=== PATIENT | male | born 1970 | race Caucasian/White ===

== ENCOUNTER 2018-07-22 08:12 | Outpatient (CLI) | payer BC, SELFPAY ==
[2018-07-22 11:53] LABS: Cholesterol 239 mg/dL (50-200); HDL Cholesterol 50 mg/dL (40-60); LDL CHOLESTEROL 151 mg/dL (<100); Triglyceride 170 mg/dL (30-150)
[2018-07-22 12:04] LABS: Hemoglobin A1C 6.3 % (4.5-6.2)
== END 2018-07-22 08:32 ==
PROVIDERS: PCP Emergency Medicine; Visit Provider Emergency Medicine
DX: E11.9 Type 2 diabetes mellitus without complications (principal); E78.5 Hyperlipidemia, unspecified
CPT/HCPCS: 36415; 80061; 83721; 83036

== ENCOUNTER 2018-08-27 07:58 | Outpatient (CLI) | payer BC, SELFPAY ==
[2018-08-27 09:15] LABS: HCT 43.4 % (40.0-50.0); HGB 15.1 g/dL (13.5-17.5); Mean Corp. HGB Concentration 34.8 g/dL (32.0-36.0); Mean Corpuscular Hemoglobin 26.7 pg (27.0-33.0); Mean Corpuscular Volume 76.8 fL (80-95); Mean Platelet Volume 8.9 fL (8.0-11.0); Platelet Count 193 x1000/uL (130-400); RBC 5.65 m/cumm (4.50-6.00); RBC Distribution Width 13.6 % (11.8-14.1); White Blood Cell Count 5.81 k/cumm (4.4-10.8)
[2018-08-27 11:19] LABS: Anion Gap 9.4 mmol/L (3-11); BUN 13 mg/dL (7-18); CO2 26.6 mmol/L (21.0-32.0); CREATININE 1.02 mg/dL (0.70-1.30); Chloride 104 mmol/L (98-107); Glucose 117 mg/dL (70-100); Potassium 4.3 mmol/L (3.5-5.1); Sodium 140 mmol/L (136-145)
== END 2018-08-27 08:18 ==
PROVIDERS: PCP Emergency Medicine; Visit Provider Student in an Organized Health Care Education/Training Program
DX: M25.561 Pain in right knee (principal); M17.31 Unilateral post-traumatic osteoarthritis, right knee; Z01.818 Encounter for other preprocedural examination
CPT/HCPCS: 36415; 80048; 85027

== ENCOUNTER 2018-08-27 10:12 | Outpatient (CLI) | payer BC, SELFPAY ==
--- NOTE | 2018-08-27 10:34 | DI.RAD_ITS ---
SYMPTOMS/DIAGNOSIS: RT KNEE DJD BONE LENGTH STUDY: Standing AP views were performed from above the iliac crests through the ankles. The hip joints appear symmetric. There is no significant leg length discrepancy. There are degenerative changes of the medial femoral tibial joint of the right knee. The left knee is unremarkable. The ankles are unremarkable. IMPRESSION: Degenerative changes of the medial femoral tibial joint of the right knee.
--- NOTE | 2018-08-28 14:43 | HPE_ITS ---
Date of service: 08/27/18 Assessment and Plan (1) Post-traumatic osteoarthritis of right knee: Current visit: No Status: Acute Plan: Patient had standing alignment x-rays completed which showed worsening degenerative changes in form of decreased joint space and osteophytes along the medial joint compartment of the right knee compared to previous x-ray obtained on 11/03/15. Educated patient on surgery covering surgical technique via use of prothesis models, recovery process, benefits and risks including but not limited to risk of infection, blood clot, damage to soft tissue/blood vessels/nerves in detail. After discussion patient gives verbal understanding of risks and elects to proceed with scheduling surgery. Patient and his had opportunity to have questions answered to his satisfaction. He was provided with a guide to total knee replacements. He will contact office if issues arise. Patient will continue to be scheduled for right TKA with Dr. Tello on 09/02/18. History of Present Illness Narrative: Mr. Hanson is a 48-year-old male who presents to clinic with his , Lyndsay, for preoperative visit for scheduled right TKA with Dr. Tello on 09/02/18. Patient was originally seen in orthopedic clinic on 11/03/15 at which time he had a right knee injury approximately 6-10 years before that visit. Following that visit patient underwent right knee arthroscopy for torn meniscus with Dr. Singh. Although patient states his right knee did not feel seen following surgery he has noticed aggravation of symptoms over the past few years. Patient describes right knee pain as being located predominantly along the medial joint line with more diffuse knee pain when severely aggravated. Pain is aggravated with long rides, prolonged sitting with the knee bent and then when he attempts to move the knee, walking on uneven ground and when walking horizontally across a hill. Although patient denies aggravation of pain when descending stairs, he states his knee will occasionally feel like it will give out when on stairs and uneven ground. Due to patient's right knee pain he is unable to crouch or kneel. Patient has received corticosteroid injections in the past including on 10/26/16, 04/17/17, 09/23/17 and received his most recent injection on 02/26/18. Patient also received a Durolane injection on 09/27/17. Although patient had previously had improved symptoms with injections he feels more recent injections have not provided long-lasting relief. Due to patient's continued pain that affects activities of daily life he was offered and elected to proceed with surgical intervention. Pertinent Surgical Information Patient was previously diagnosed with hyperlipidemia but as per patient he no longer requires medications. Patient recently quit smoking approximately 1 month ago but states when he did smoke he would occasionally experience anterior chest wall discomfort following a cough. States pain would only be elicited with coughing and would resolve within seconds. Since quitting smoking he has noticed improved ZAPATA, describes continued ZAPATA after prolonged activity i.e. two flights of stairs. Denies dyspnea at rest. Denies any left sided anterior chest wall pain, denies radiation of pain down his arm, denies palpations, rapid/slow/irregular heart beats. Patient has history of diverticulitis with perforation in 2013. States he has not had any recent symptoms or GI issues. He does take MiraLax regularly at baseline to help decrease his constipation. Denies past medical history of: stroke, cardiac issues, angina, asthma, COPD, sleep apnea, renal issues, liver issues, hepatitis, current gastrointestinal issues, ulcers, bleeding disorders, seizures, migraines, anxiety, depression, diabetes, thyroid issues. Denies prior complications from surgery or anesthesia. Review of Systems Constitutional Denies fever(s), Denies frequent falls and Denies headache(s) Eyes Denies change in vision ENT Denies dizziness, Denies ear discharge, Denies headache(s), Denies epistaxis, Reports nasal congestion (improved from last week when had minor cold), Denies nasal discharge, Denies sinus pressure and Denies sore throat Cardiovascular Denies chest pain, Denies rapid heart rate, Denies irregular heart rhythm, Denies palpitations, Denies dyspnea, Reports dyspnea on exertion (improving since he quit smoking), Denies orthopnea, Denies paroxysmal nocturnal dyspnea and Denies slow heart rate Comments: Reports previous had slight anterior chest wall pain when he would cough due to smoking; denies any recent symptoms Respiratory Denies cough, Denies excessive phlegm production, Denies dyspnea, Reports dyspnea on exertion (improving since he quit smoking) and Denies wheezing Gastrointestinal Denies abdominal pain, Denies melena, Denies hematochezia, Reports constipation (on MiraLax), Denies diarrhea, Denies nausea and Denies vomiting Genitourinary Denies hematuria, Denies dysuria and Denies urinary urgency Musculoskeletal Reports as per HPI, Denies numbness and Denies tingling Neurologic Denies dizziness, Denies frequent falls, Denies headache(s), Denies numbness and Denies tingling Psychiatric Denies anxiety and Denies depression Endocrine Denies palpitations Allergic/Immunologic Denies wheezing [facility] Medical History HTN (hypertension) Hyperlipidemia (Acute) Elevated blood sugar (Acute) Tobacco use disorder (Acute) Post-traumatic osteoarthritis of right knee (Acute 11/03/15) Diverticulitis with perforation (Acute 09/18/13) Psoriasis (Chronic) History of alcohol abuse Obesity Surgical History Meniscectomy (~2006) Open Carpal Tunnel release Colonoscopy - [facility] Family History Mother Essential hypertension Hyperlipidemia Heart disease Heart valve disease Father Essential hypertension Diabetes Sister Personal history of malignant neoplasm Brother Essential hypertension Diabetes PATERNAL AUNT Personal history of malignant neoplasm Social History Smoking/Tobacco Use Status: Former Tobacco Use Pack-years: 35 Alcohol Intake: current Alcohol Intake frequency: other Alcohol type: beer Drug use: Never Household members: spouse 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 Meds Home Medications Medication Instructions Recorded Confirmed Type nicotine (polacrilex) 2 mg PO Q1H PRN #100 piece of gum 07/17/17 08/27/18 Rx clobetasol-emollient 15 gm TOPICAL DAILY #2 tube 09/10/17 08/27/18 Rx nicotine (polacrilex) 4 mg gum 4 mg BC Q2H #100 each 03/14/18 08/27/18 Rx amlodipine 5 mg PO HS 08/27/18 08/27/18 History lisinopril 20 mg PO HS 08/27/18 08/27/18 History polyethylene glycol 3350 [Miralax] 17 g PO DAILY 08/27/18 08/27/18 History Allergies Allergy/AdvReac Type Severity Reaction Status Date / Time acetaminophen [From Vicodin] AdvReac Intermediate itch and Verified 08/28/18 14:30 rash hydrocodone bitartrate AdvReac Intermediate itch and Verified 08/28/18 14:30 [From Vicodin] rash Exam Const General: cooperative and no acute distress HENMT Head: normal to inspection, normocephalic and atraumatic Ears: external ears normal General nose exam: external nose normal and no nasal discharge Face and sinus: face symmetric Mouth: oral mucosae normal, lip normal, tongue normal and moist mucous membranes Teeth and gingiva: dentition normal Throat: posterior oropharynx normal Eyes General: appearance normal, both eyes and all related structures Pupils: PERRL EOM: EOM intact bilaterally Neck Neck: trachea midline Carotids: normal carotid upstroke Lymphatic: no lymphadenopathy noted Resp Effort & Inspection: normal respiratory effort and able to speak in complete sentences Auscultation: clear to auscultation bilaterally, no rales, no rhonchi and no wheezes Cardio Heart Sounds: S1 normal, S2 normal and no murmurs Pulses: radial pulses present bilaterally GI Palpation: soft, no hepatosplenomegaly and nontender Auscultation: normal bowel sounds Skin General skin exam: no rashes or lesions noted Extrem Other: Right knee examination: Skin is intact without signs of erythema, ecchymosis, calor, lesions or rashes. Slight tenderness palpation along medial joint line. Active range of motion reveals full extension and flexion of 110 degrees with slight discomfort elicited at end range of motion. Knee is stable to valgus and varus stress without eliciting discomfort.
== END 2018-08-27 10:32 ==
PROVIDERS: PCP Emergency Medicine; Visit Provider Physician Assistant
DX: M25.561 Pain in right knee (principal); M17.11 Unilateral primary osteoarthritis, right knee
CPT/HCPCS: NC; 77073

== ENCOUNTER 2018-09-02 05:51 | Inpatient (IN) | payer BC, SELFPAY ==
[2018-08-27 08:04] VITALS: BP 140/79; PULSE 74; RESP 19; TEMP 36.6; O2SAT 94
[2018-09-02] VITALS (10 sets, daily range): BP systolic 97–172; BP diastolic 60–94; PULSE 59–84; RESP 13–22; TEMP 35.6–37.1; O2SAT 95–98
[2018-09-02] MEDS: Celecoxib 200 MG CAP 400 MG PO (06:32)
[2018-09-02] MEDS: Acetaminophen 500 MG TAB 1000 MG PO ×2 (06:32→13:41)
[2018-09-02] MEDS: oxyCODONE-CR 10 MG TABCR PO (06:33)
[2018-09-02] MEDS: Gabapentin 300 MG CAP PO (06:33)
[2018-09-02] MEDS: Lactated Ringers 1,000 ML 80 ML IV ×3 (06:33→12:41)
[2018-09-02] MEDS: Bupivacaine 0.25% Pres-Free 30 ML VIAL ×2 (07:00→09:03)
[2018-09-02] MEDS: Bupivacaine LIPOSOME/PF 133 MG/10 ML VIAL IJ ×2 (07:00→09:03)
[2018-09-02] MEDS: ceFAZolin 2 GM/50 ML BAG IVPB (07:34)
[2018-09-02] MEDS: Ketorolac 30 MG/ML VIAL (09:03)
[2018-09-02] MEDS: Normal Saline 20 ML VIAL (09:03)
[2018-09-02] MEDS: Normal Saline Flush 10 ML SYR IV (12:47)
--- NOTE | 2018-09-02 14:27 | PT.INIE ---
Date of service: 09/02/18 Time of Service: 13:33 PT Notes Inpatient Physical Therapy Evaluation Date: 09/02/2018 Referring Doctor: Kwan Tello MD PT Orders: PT CONSULT: Status post right TKA Precautions: Fall. Standard. Patient Profile/Admitting Diagnosis: Order was received today for conservative management of this 48-year-old male with unilateral posttraumatic osteoarthritis of the right knee, status post right total knee arthroplasty early this morning. PMHX: Medical History HTN (hypertension) Hyperlipidemia (Acute) Elevated blood sugar (Acute) Tobacco use disorder (Acute) Post-traumatic osteoarthritis of right knee (Acute 11/03/15) Diverticulitis with perforation (Acute 09/18/13) Psoriasis (Chronic) History of alcohol abuse Obesity Surgical History Meniscectomy (~2006) Open Car[place] T[place] [facility] [place]Home Situation: Patient lives with Lyndsay in a 2-floor house with 5 steps to enter, rails on both sides. Patient has a flight of stairs to the second floor of the house where his bedroom is, rail on the right side going up. He is currently employed by the [employer] and hopes to go back to work once cleared to do so. Patient was independent with all aspects of ADLs without use of any adaptive equipment nor assistive ambulatory devices. Patient reports that when he goes home from this hospital will be helping out and assisting with whatever he needs for a week or so. Equipment Owned/DME: Patient states that he has a FWW at home that he can use as needed. Subjective: Patient denies any dizziness, headaches, chest discomfort. He states that apart from the pain pain he has from the mid calf to mid thigh, he is generally okay and hopes to go home soon when safe to do so cleared by orthopedic surgeon. He is agreeable to a PT consult and treatment. Objective: General Observation: Patient seen lying in bed with cryocuff on right knee. MAUREEN bandages covering surgical dressing from mid leg through mid thigh on the right side. Left IV in the right UE. Juan catheter on. Mental Status: Alert and oriented x3 Pain: 2-3/10 at rest. 4/10 with weightbearing and with pressing the popliteal area downward in bed with terminal knee extension. ROM: Right Upper Extremity: WFL Left Upper Extremity: WFL Right Lower Extremity: In supine, patient was able to bend at the knee up to 115 degrees actively with minimal discomfort, movement limited by MAUREEN wrap. In standing, with the right hip in neutral position, patient was able to bend actively at the knee for a 110 degrees again with MAUREEN wrap limiting full movement. Patient was able to perform straight leg raises 5 times to 50 degrees. Left Lower Extremity: WFL Strength: Right Upper Extremity: Grossly 5/5 Left Upper Extremity: Grossly 5/5 Right Lower Extremity: Hip flexors 3-/5. Knee extensors 3/5. Knee flexors 3-/5. Ankle plantarflexors 5/5. Ankle dorsiflexors 5/5. Left Lower Extremity: Hip flexors 4+/5. Knee extensors 4+/5. Knee flexors 5/5. Ankle plantar flexors 5/5. Ankle dorsiflexors 5/5. Sensation: Minimally impaired on the right LE as to pain and pressure, intact on the left side.Not completely. He states, I feel numb on the right inner thigh Bed Mobility/Transfers: Rolling independent Supine to sit independent Sit to supine independent Sit to stand independent Stand to sit independent Bed to chair supervision Chair to bed supervision Gait: Patient was able to perform level surface ambulation from room to the therapy gym for about 75 feet x2 using the front wheeled walker with only SBA provided. He was able to negotiate three 4-inch steps twice and two 6-inch steps twice with both hands holding onto bilateral rails. No LOB observed. No dizziness reported. Increase discomfort to 4/10 with weight bearing was reported but subsided with rest. Balance: Static Sitting: Normal Dynamic Sitting: Normal Static Standing: Fair Dynamic Standing: Fair Special Tests: Mobility Limitations Standardized Measure [facility] AM-PAC 6 clicks Basic Mobility Inpatient Short Form: Raw Score:21 CMS Score: 29% deficit Informed Consent/Education: Patient instructed in purpose of PT consult and plan of care. He was also instructed in strategies for preventing knee flexion contracture on the right side. Reinforced the value of repeated level surface ambulation at discharge destination in order to maximize mobilization of right knee. Assessment: Patient is a 48-year-old male referred to physical therapy services with the diagnosis unilateral posttraumatic osteoarthritis of the right knee status post total knee arthroplasty. Patient presents with clinical signs and symptoms consistent with current/admitting diagnoses and postoperative status that have resulted to mobility limitations, gait instability, generalized weakness, and impaired of motor control as demonstrated by the following impairment level findings: 1. Decreased strength to right quadriceps 2. Impaired balance 3. Impaired activity tolerance 4. Limitation of joint range of motion in right knee Impairments are contributing to the following functional limitations: 1. Increased completion time for bed mobility tasks 2. Increased completion time for transfer tasks 3. Inability to safely ambulate without assistive device and discomfort 4. Increase completion time for mobility ADL performance 5. Increased fall risk 6. Inability to negotiate steps alone safely without discomfort Patient is assessed as a Moderate 41698 complexity based on the following: History: Patient is a 48-year-old male with unilateral posttraumatic arthritis on the right side status post total knee arthroplasty with co morbidities and past medical history as listed above Examination: Underlying impairments and functional deficits with resulting AMPAC score of 21 and an equivalent CMS score 29% deficit Presentation: Evolving Decision Makin moderate complexity Goals: Goals x 3 days 1. Bed-Chair independent 2. Chair-Bed independent 3. Gait on level surface ambulation with use of least restrictive device for at least 300 feet without report of pain nor dyspnea 4. Stairs independent while holding onto bilateral rails for at least 10 steps without report of pain nor dyspnea 5. Independent with home exercise program 6. Balance good for static and dynamic standing Plan of Care/Treatment Plan: 1-2x/day, 7 days/week x 1 week. Plan of care has been reviewed with the [facility] providing the service under Physical Therapy direction. Initiate Physical Therapy intervention for strengthening, bed mobility, transfers, gait, stairs, balance training, use of assistive device. DISCHARGE RECOMMENDATIONS: May benefit from short-term outpatient physical therapy services 2 weeks from today per orthopedic surgeon recommendations in order to facilitate return to premorbid independent level and to vocational/recreational activities. TREATMENT CODE/TIME: 69180 25 minutes, 05457 24 minutes beginning at 13:33 PM. Thank you for this referral. Yanelis Ellison, PT, DPT, CLT [facility]
--- NOTE | 2018-09-02 15:38 | W.PM.DS.N ---
Date of service: 09/02/18 Time of Service: 15:38 DS: Diagnosis Discharge Diagnosis (1) Post-traumatic osteoarthritis of right knee: Status: Acute Discharge Plan Disposition Patient Disposition: HOME Condition: Good Discharge Details Reason For Visit: R KNEE DJD Admit Date/Time: 09/02/18 05:51 Admit Provider: Kwan Tello Attending Provider: Kwan Tello Primary Care Provider: Florin Fung Hospital Course Hospital Course: Patient was admitted to the medical/surgical floor following the procedure. It was tolerated well without any notable medical, surgical, or anesthetic complications. Mobilization began postoperatively. The isaac catheter was removed and voiding spontaneously. Vitals were stable. Physical therapy worked with the patient and was cleared for discharge home. No acute medical issues. Home Meds and New Rx's Prescriptions: New celecoxib 200 mg capsule 200 mg PO BID PRN (Reason: pain) Qty: 60 RF: 1 acetaminophen 500 mg tablet 1,000 mg PO Q8H PRN (Reason: pain) Qty: 90 RF: 3 pantoprazole 40 mg tablet,delayed release (DR/EC) 40 mg PO DAILY Qty: 30 RF: 0 gabapentin 300 mg capsule 300 mg PO QHS Qty: 7 RF: 0 oxycodone 5 mg tablet 5 mg PO Q4H Qty: 18 RF: 0 aspirin 81 mg tablet,delayed release (DR/EC) 81 mg PO BID Qty: 60 RF: 0 Continued nicotine (polacrilex) 2 MG gum 2 mg PO Q1H PRN Qty: 100 RF: 1 clobetasol-emollient 15 GM cream 15 gm Topical DAILY Qty: 2 RF: 3 nicotine (polacrilex) [Nicorette] 4 mg gum 4 mg BC Q2H Qty: 100 RF: 3 lisinopril 20 MG tablet 20 mg PO HS RF: 0 amlodipine 5 MG tablet 5 mg PO HS RF: 0 polyethylene glycol 3350 [Miralax] 17 gram/dose Powder 17 g PO DAILY RF: 0 Discharge Instructions Additional Instructions: Dr. Tello?s Total Knee Discharge Instructions Activity: The most important activity is to walk. You should try to take short walks a few times a day. It is important that when resting you work on keeping the knee straight. Avoid putting a pillow behind the knee as this will encourage flexion. Work on range of motion exercises as provided by Physical Therapy. - Start outpatient physical therapy within 2 weeks. - You should wear the SUMA hose on both legs for 4 weeks. Dressing: Keep the surgical dressing in place for at least one week. After the first week it may be removed and replace with light gauze and tape or nothing. It may get wet after 3 days but avoid soaking the dressing. If it gets wet, just lightly pat dry. Medications: - You should take Tylenol and anti-inflammatory (Celebrex) as your primary pain control medications - You have been prescribed a stronger pain medication (Oxycodone) for breakthrough pain, take as needed as prescribed. - You will be taking Aspirin 81mg twice a day for DVT prevention unless instructed otherwise. - If you have constipation you should take Colace or Miralax (both [id number]). It takes most people 3-4 days to have a bowel movement. Follow-up: 2 weeks Stand Alone Forms: Nursing Discharge Form Activity:: Activity as Tolerated Equipment/Supplies:: Walker Diet:: As Tolerated Discharge Orders Discharge Orders: Discharge Order (Routine); Ordered 09/02/18 Ordered By: Kwan Tello DS: Data Vitals/I&O Vitals and I&O: Vital Signs Temperature 35.6 C L 09/02/18 11:00 Pulse 72 09/02/18 11:00 Pulse Rhythm Regular 09/02/18 11:00 Respiratory Rate 18 09/02/18 11:00 Respiratory Effort Non-Labored 09/02/18 11:00 Respiratory Depth Normal 09/02/18 11:00 Respiratory Pattern Normal 09/02/18 11:00 Blood Pressure 113/75 09/02/18 11:00 Pulse Oximetry 97 09/02/18 11:00 Respiratory End-tidal CO2 36 09/02/18 10:45 Oxygen Delivery Method Room Air 09/02/18 11:00 Oxygen Flow Rate 0 09/02/18 11:00 Pain Level 0 09/02/18 14:41 Comment 09/02/18 11:00 Intake & Output 09/01/18 09/02/18 09/02/18 23:59 11:59 23:59 Intake Total 1938.667 / 4200.666 2261.999 / 4200.666 Output Total 300 / 2550 2250 / 2550 Balance 1638.667 / 1650.666 11.999 / 1650.666 Weight 114.1 kg Intake: IV 1148.667 / 1520.666 371.999 / 1520.666 Oral 790 / 2680 1890 / 2680 Output: Urine 100 / 2350 2250 / 2350 Estimated Blood Loss 200 / 200 Other: Urine Color Yellow Yellow Urine Appearance Clear Clear Urine Odor None Comment Void x1 in the toilet. Emesis Description None Voiding Methods Toilet [facility] Medical History HTN (hypertension) Hyperlipidemia (Acute) Elevated blood sugar (Acute) Tobacco use disorder (Acute) Post-traumatic osteoarthritis of right knee (Acute 11/03/15) Diverticulitis with perforation (Acute 09/18/13) Psoriasis (Chronic) History of alcohol abuse Obesity Surgical History Meniscectomy (~2006) Open Carpal Tunnel release Colonoscopy - [facility] Family History Mother Essential hypertension Hyperlipidemia Heart disease Heart valve disease Father Essential hypertension Diabetes Sister Personal history of malignant neoplasm Brother Essential hypertension Diabetes PATERNAL AUNT Personal history of malignant neoplasm Social History Smoking/Tobacco Use Status: Former Tobacco Use Pack-years: 35 Alcohol Intake: current Alcohol Intake frequency: other Alcohol type: beer Drug use: Never Household members: spouse 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
[2018-09-02] MEDS: oxyCODONE 5 MG TAB PO (15:51)
--- NOTE | 2018-09-02 15:54 | ROE_ITS ---
Date of service: 09/02/18 Time of Service: 09:50 Operative Note DATE OF PROCEDURE: 09/02/18 PRE-OP DIAGNOSIS: Right knee osteoarthritis POST-OP DIAGNOSIS: same PROCEDURE: Right Total Knee Replacement SURGEON: Kwan Tello RECRUITING COORDINATOR: Laura House ANESTHESIA: regional and spinal ESTIMATED BLOOD LOSS: 200 PATHOLOGY: none sent TOURNIQUET TIME: 34 COMPLICATIONS: None Patient was transported to: PACU Patient's condition: stable Implants: 1. Depuy Attune Posterior Stabilized Femoral Component, Size 7 2. Depuy Attune Fixed Platform Tibial Component, Size 5 3. Depuy Attune 7 x 6 mm fixed, Stabilized Poly 4. Depuy Attune Patellar Component, Size 35 mm Indications: I have seen Kelvin in clinic for symptoms of RIGHT knee arthritis, confirmed with radiographic findings. Kelvin has exhausted nonoperative methods and was having significant limitations in daily function and desired better function and less pain. I discussed the technical details of a knee replacement. I explained the risks of the procedure to include, but not limited to, bleeding, infection, pain, stiffness, fracture, damage to nerves and vessels, damage to muscles and tendons, loosening, need for repeat procedure, blood clot and cardiopulmonary demise. Despite these risks, Kelvin elected to proceed. Findings: There was significant signs of arthritis throughout the knee. They were seen in all 3 compartments but the medial femur and medial tibia showed significant chondromalacia with irregularity of the cartilage and some exposed bone. Procedure Description: Kelvin was greeted in the preoperative holding area where the correct side was identified and marked. The consent was reviewed with the patient and signed. The history and physical was updated. All questions were answered. Preoperative mediacations were administered: Acetaminophen 1000mg, Celebrex 400mg, Gabapentin 300mg, and Oxycontin 10mg. An adductor canal block was then administered by the anesthesia team in the PACU. Kelvin was taken back to the operating room. A spinal anesthestic was then administered. The patient was placed into the supine position on the operating room table. A nonsterile tourniquet was placed high onto the leg but only used for cementing. Posts were placed for positioning during the procedure. All bony prominences were well padded. Prophylactic antibiotics in the form of cefazolin were administered. 1g of Tranxemic Acid was given intravenously within 30 minutes of incision. The right leg was then prepped with Chloraprep and draped in a standard fashion with impervious stockinette and extremity drape with Iodine impregnated skin protection. A timeout to confirm correct identity, side and site, procedure, allergies, anesthesia, and medical concerns was performed. With the knee in some flexion, a midline incision was made overlying the knee. Full thickness skin flaps were raised once the extensor mechanism was encountered. These were raised medially and laterally. Any bleeding was controlled with electrocautery. Once the extensor mechanism was fully exposed, a medial parapatellar arthrotomy was performed in a flexed position. All bleeding from the arthrotomy and the geniculate arteries was coagulated. A medial subperiosteal peel was performed with electrocautery to the midcoronal plane. The fat pad was removed while keeping the patellar tendon protected. The anterior distal femur synovium was removed for later visualization. The ACL and PCL were resected and the anterior horn of the lateral meniscus was transected. The knee was then flexed with the patella everted. There were significant signs of arthritis in the medial compartment with loss of cartilage over the medial femur and medial tibia with irregularities of this area as well as osteophytes. Mild arthritic changes were seen in the patellofemoral joint as well as the lateral compartment. Using a step drill, and based on preoperative templating, the femoral canal was entered. This was done with a step drill without any difficulty. The intramedullary distal femoral cut guide was inserted, set to a 5 degree valgus cut and 9mm cut thickness. The distal femoral cut guide was then held in position and pinned. With the soft tissues protected, the distal cut was performed. This was passed over a few times to ensure a planar cut. I then turned attention to the tibia. The extramedullary guide was placed onto the leg. The distal aspect was slid medial to adjust for position of center of ankle and stay in line with shaft of the tibia. Approximately 3-5 degrees of posterior slope was kept in the proximal cutting guide. The center of the guide was aligned with the PCL. The stylus was used to assess cut thickness. The medial side, most involved side, was set for a 4mm cut. This was then held in position and pinned into place with 2 additional pins and a cross pin for stability. The medial and lateral collateral ligaments were protected and the cut was performed. With this completed, it was assessed and noted to be of appropriate dimensions. The guide was removed. A spacer block was inserted and the knee was brought into extension. The 6mm spacer block provided full extension, without hyperextension and with stability of both the medial and lateral collateral ligaments was assessed. The pins from the femur and the tibia were then removed. The distal femur was then sized. The anterior stylus was placed onto the lateral ridge of the anterior femur. This indicated a size 7 femur. The external rotation of the guide was adjusted to 3 degrees to match the epicondylar axis, perpendicular to [place]?s line. The 4-in-1 cutting guide was the placed. The posterior medial femur cut was evaluated and appeared of good thickness. The spacer block was inserted underneath the cutting guide and stability was confirmed in 90 degrees of flexion. An jordy wing was used to confirm appropriate position of the anterior cut to avoid notching. This cutting guide was ensured to be flush on the cut surface and then pinned into place with headed pins. While protecting the soft tissues, quad tendon, and collateral ligaments, the anterior and posterior cuts were performed with a saw. The central two pins were removed and the posterior and anterior chamfers were cut next. The notch-cutting guide was placed. This was pinned to lateralize the femoral component as much as possible while keeping it flush on the cut surface. This was then pinned into position. A reciprocating saw was used to make the notch cut. A rasp smoothed the cut surfaces. A trial posterior stabilized femoral component was then inserted, impacted down to the cut surfaces, and the lug holes were drilled. A provisional trial tibial component was placed and the knee was brought through range of motion. There was noted to be excellent extension and flexion. There was no significant instability. The patella was tracking without thumbs. The tibial cut surface was fully exposed. The medial and lateral menisci were removed. The tibia was then sized as a 5. The tibia had been previously marked during trialing to correspond to the center of the tibial component to help with rotation. The trial was aligned to this césar, approximately rotated to the medial 1/3rd of the tibial tubercle. The trial was pinned into place. The tibia was prepared with a reamer and a keel punch. The knee was then brought into extension and the patella was measured as 25 mm. Using the patellar clamp and cut guide, this was resected to a flat surface with at least 13mm of thickness remaining. The size 35 patella fit the best. This was oriented and then clamped into position. The lugs were drilled. The trial components were removed. The final components, except for the polyethylene were opened on the back table. The periosteal and capsular tissues, especially posteriorly, around the knee were then systematically injected with a periarticular cocktail consisting of 50cc 0.25% Marcaine, 30mg Ketorolac, 20cc of Exparal and 50cc of injectable saline. The tourniquet was then inflated to 275mmHg. The knee was thoroughly irrigated with a pulse lavage and dried. On the back table, with the implants opened, the cement was mixed. 2 batches of antibiotic laden cement were prepared with vacuum assistance. After the cement was ready a small amount was placed on to the back side of the tibial component at the keel. A small amount was placed onto the posterior flange of the femur. Cement was manual pressurized and impregnated into the cut surface of the tibia. The tibial component was then inserted into the cut surface and impacted into position. Excess cement was removed and the component was reimpacted. Again, excess cement was removed and our attention was then turned to the femur. The femoral cut surface was once again dried and cement was manually impacted into the cut surface. The femoral component was lined with the lug holes and impacted. Excess cement was removed. It was ensured to be down against the cut surface. The trial polyethylene was then inserted and the leg was brought out into full extension for the duration of the cement curing process, approximately 15min. Cement was lastly manually impacted into the cut surface of the patella and the patellar button was clamped into position and held. During this process attention was turned to the gutters of the knee and for all interfaces for any excess cement. After the cement had finally cured, approximately 15min, the clamp was removed from the patella and the knee was taken through range of motion. A size 6mm polyethylene component provided the best range of motion and stability with less than 2mm gapping with medial and lateral stress and full extension without significant hyperextension. The patella was tracking with a no-thumbs technique. The trial poly was removed and once again the knee was checked for any loose, excess, or errant cement. The poly component was then inserted and impacted into position after cleaning and drying the tibial tray. The capsule was then reapproximated with a No. 1 Vicryl at multiple locations. The capsule was finally closed with a No. 2 Stratafix, barbed suture. The tourniquet was then released and the arthrotomy appeared watertight without significant bleeding. The second dosing of 1g TXA was started. Deep tissues were then reapproximated with 0 Vicryl and 2-0 Vicryl. The skin was closed with a running 3-0 Monocryl in a subcuticular fashion. This was reinforced with skin glue. A Mepilex silver dressing was applied along with a [id number] MAUREEN wrap. A CryoCuff was applied. Kelvin was transferred to the hospital bed without difficulty an suffering no apparent complication. Kelvin has a good prognosis. Physical therapy will start today and without restrictions, weight-bearing as tolerated. Aspirin 81mg BID will be used for DVT prophylaxis.
--- NOTE | 2018-09-03 17:35 | PT.INDS ---
Date of service: 09/02/18 PT Notes Inpatient Physical Therapy Discharge Summary Dates: 09/02/2018 Dates of Service: 09/02/2018 only Date: 09/02/2018 Referring Doctor: Kwan Tello MD PT Orders: PT CONSULT: Status post right TKA Precautions: Fall. Standard. Patient Profile/Admitting Diagnosis: Order was received today for conservative management of this 48-year-old male with unilateral posttraumatic osteoarthritis of the right knee, status post right total knee arthroplasty early this morning. PMHX: Medical History HTN (hypertension) Hyperlipidemia (Acute) Elevated blood sugar (Acute) Tobacco use disorder (Acute) Post-traumatic osteoarthritis of right knee (Acute 11/03/15) Diverticulitis with perforation (Acute 09/18/13) Psoriasis (Chronic) History of alcohol abuse Obesity Surgical History Meniscectomy (~2006) Open Carpal Tunnel release Colonoscopy - [facility] [place] Social History/Home Situation: Patient lives with Lyndsay in a 2-floor house with 5 steps to enter, rails on both sides. Patient has a flight of stairs to the second floor of the house where his bedroom is, rail on the right side going up. He is currently employed by the [employer] and hopes to go back to work once cleared to do so. Patient was independent with all aspects of ADLs without use of any adaptive equipment nor assistive ambulatory devices. Patient reports that when he goes home from this hospital will be helping out and assisting with whatever he needs for a week or so. Equipment Owned/DME: Patient states that he has a FWW at home that he can use as needed. Subjective: Patient was agreeable to a possible same day discharge if normal voiding of urine is achieved per orthopedic surgeon's recommendation. He states that Lyndsay will be able to take care of him at home. Objective: General Observation: Patient seen lying in bed with cryocuff on right knee. MAUREEN bandages covering surgical dressing from mid leg through mid thigh on the right side. Left IV in the right UE. Juan catheter on. Mental Status: Alert and oriented x3 Pain: 2-3/10 at rest. 4/10 with weightbearing and with pressing the popliteal area downward in bed with terminal knee extension. ROM: Right Upper Extremity: WFL Left Upper Extremity: WFL Right Lower Extremity: In supine, patient was able to bend at the knee up to 115 degrees actively with minimal discomfort, movement limited by MAUREEN wrap. In standing, with the right hip in neutral position, patient was able to bend actively at the knee for a 110 degrees again with MAUREEN wrap limiting full movement. Patient was able to perform straight leg raises 5 times to 50 degrees. Left Lower Extremity: WFL Strength: Right Upper Extremity: Grossly 5/5 Left Upper Extremity: Grossly 5/5 Right Lower Extremity: Hip flexors 3-/5. Knee extensors 3/5. Knee flexors 3-/5. Ankle plantarflexors 5/5. Ankle dorsiflexors 5/5. Left Lower Extremity: Hip flexors 4+/5. Knee extensors 4+/5. Knee flexors 5/5. Ankle plantar flexors 5/5. Ankle dorsiflexors 5/5. Sensation: Minimally impaired on the right LE as to pain and pressure, intact on the left side.Not completely. He states, I feel numb on the right inner thigh Bed Mobility/Transfers: Rolling independent Supine to sit independent Sit to supine independent Sit to stand independent Stand to sit independent Bed to chair supervision Chair to bed supervision Gait: Patient was able to perform level surface ambulation from room to the therapy gym for about 75 feet x2 using the front wheeled walker with only SBA provided. He was able to negotiate three 4-inch steps twice and two 6-inch steps twice with both hands holding onto bilateral rails. No LOB observed. No dizziness reported. Increase discomfort to 4/10 with weight bearing was reported but subsided with rest. Balance: Static Sitting: Normal Dynamic Sitting: Normal Static Standing: Fair Dynamic Standing: Fair Special Tests: Mobility Limitations Standardized Measure [facility] AM-PAC 6 clicks Basic Mobility Inpatient Short Form: Raw Score:21 CMS Score: 29% deficit Informed Consent/Education: Patient was instructed in strategies for preventing knee flexion contracture on the right side. Reinforced the value of repeated level surface ambulation at discharge destination in order to maximize mobilization of right knee. Assessment: Patient is a 48-year-old male referred to physical therapy services with the diagnosis unilateral posttraumatic osteoarthritis of the right knee status post total knee arthroplasty. Patient presents with clinical signs and symptoms consistent with current/admitting diagnoses and postoperative status that have resulted to mobility limitations, gait instability, generalized weakness, and impaired of motor control as demonstrated by the following impairment level findings: 1. Decreased strength to right quadriceps 2. Impaired balance 3. Impaired activity tolerance 4. Limitation of joint range of motion in right knee Impairments are contributing to the following functional limitations: 1. Increased completion time for bed mobility tasks 2. Increased completion time for transfer tasks 3. Inability to safely ambulate without assistive device and discomfort 4. Increase completion time for mobility ADL performance 5. Increased fall risk 6. Inability to negotiate steps alone safely without discomfort Goals: N/A. Patient went home same day as date of surgery and date of his physical therapy evaluation. DISCHARGE RECOMMENDATIONS: May benefit from short-term outpatient physical therapy services 2 weeks from today per orthopedic surgeon recommendations in order to facilitate return to premorbid independent level and to vocational/recreational activities. TREATMENT CODE/TIME: N/A Thank you for this referral. Yanelis Ellison, PT, DPT, CLT [facility]
== END 2018-09-02 16:25 | disposition home or self-care (01) | DRG 470 ==
LOC: PDS 05:52 → MS 10:08
PROVIDERS: Admitting Provider Student in an Organized Health Care Education/Training Program; PCP Emergency Medicine; Visit Provider Student in an Organized Health Care Education/Training Program
PROC: 0SRC0J9 Replacement of Right Knee Joint with Synthetic Substitute, Cemented, Open Approach (ICD-10-PCS; CPT 27447; principal; 2018-09-02 07:30)
DX: M17.31 Unilateral post-traumatic osteoarthritis, right knee (principal); Z96.651 Presence of right artificial knee joint; X58.XXXS Exposure to other specified factors, sequela; I10 Essential (primary) hypertension; E78.5 Hyperlipidemia, unspecified
CPT/HCPCS: 27447; 64447; 76942; 97530; NC; J0690; J1100; J1885; J2250; J2405; J3010

== ENCOUNTER 2018-09-19 08:30 | Outpatient (CLI) | payer BC, SELFPAY ==
--- NOTE | 2018-09-19 07:11 | DI.RAD_ITS ---
SYMPTOM/DIAGNOSIS: F/U RT TKA RIGHT KNEE: Lateral view of the knee was obtained and shows total knee joint replacement in position. The components appear well seated. No other bony abnormality is seen. BILATERAL LOWER EXTREMITIES: AP views of the lower extremities were obtained for leg length determination. There are mild degenerative changes of the hip joints bilaterally. There is a total knee joint replacement in position on the right.
== END 2018-09-19 08:50 ==
PROVIDERS: PCP Emergency Medicine; Visit Provider Student in an Organized Health Care Education/Training Program
DX: M17.31 Unilateral post-traumatic osteoarthritis, right knee (principal); Z96.651 Presence of right artificial knee joint; M16.0 Bilateral primary osteoarthritis of hip
CPT/HCPCS: 73560; 77073

== ENCOUNTER 2019-10-22 04:47 | Outpatient (CLI) | payer BC, SELFPAY ==
[2019-10-22 08:08] LABS: Hemoglobin A1C 6.4 % (3.8-5.6)
[2019-10-22 09:12] LABS: Anion Gap 8.6 mmol/L (3-11); BUN 12 mg/dL (7-18); CO2 26.4 mmol/L (21.0-32.0); CREATININE 1.07 mg/dL (0.70-1.30); Calcium 8.7 mg/dL (8.5-10.1); Calculated LDL 144 mg/dL (<100); Chloride 102 mmol/L (98-107); Cholesterol 221 mg/dL (<200); Glucose 124 mg/dL (74-106); HDL Cholesterol 54 mg/dL (40-60); Potassium 4.2 mmol/L (3.5-5.1); Sodium 137 mmol/L (136-145); Triglyceride 115 mg/dL (<150)
[2019-10-23 10:57] LABS: PSA, Screening 0.4 ng/mL (0.0-3.5)
== END 2019-10-22 05:07 ==
PROVIDERS: PCP Emergency Medicine; Visit Provider Emergency Medicine
DX: E78.5 Hyperlipidemia, unspecified (principal); I10 Essential (primary) hypertension; Z12.5 Encounter for screening for malignant neoplasm of prostate; E11.9 Type 2 diabetes mellitus without complications
CPT/HCPCS: 36415; 80048; 80061; 84153; 83036

== ENCOUNTER 2019-12-11 01:51 | Outpatient (CLI) | payer BC, SELFPAY ==
--- NOTE | 2019-12-11 13:00 | NS.NUTBLAN_ITS ---
Kelvin is referred to creative services writer for Medical Nutrition Therapy for obesity, elevated blood sugars, hyperlipidemia and HTN. 5'8 252 lbs BMI 38. Meds include: lisinopril. Labs indicate (10/22/19) A1C: 6.4%. Chol: 221, LDL 144, HDL 54. 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 Diet recall indicates erratic meals, convenience foods and an occasional home cooked meal. He smokes 1-2 packs daily. Couple beers daily reported. Assessment/intervention:Kelvin appears to have metabolic syndrom with elevates blood sugars, elevated lipids, obesity and HTN. We discussed risk factors and importance to stop smoking, lose weight and start exercise for improved health. Kelvin is motivated to make positive changes and we discussed simple meals he can have on the run and ways to include exercise into his daily routine despite being busy. He has a family hx of insulin dep diabetes (brother) and is motivated to make changes to avoid risk of developing diabetes in the future. I provided him with written education materials and will follow up on his progress in coming weeks. No future appt made at this time. Plan. 1. Kelvin will talk to MD griggs: smoking cessation and treatment options, 2. Kelvin will eat 3-4 meals daily and focus on complex carbs, lean protein and non starchy vegetables, 3. He will start to walk/exercise/cardio 10-20 min daily x 5 days per week. Kelvin to make follow up appt. prn.
== END 2019-12-11 02:11 ==
PROVIDERS: PCP Emergency Medicine; Visit Provider Dietitian, Registered
DX: R73.09 Other abnormal glucose (principal); E78.5 Hyperlipidemia, unspecified; I10 Essential (primary) hypertension; E66.9 Obesity, unspecified; Z71.3 Dietary counseling and surveillance
CPT/HCPCS: 97802

== ENCOUNTER 2020-03-08 14:11 | Outpatient (REF) | payer BC, SELFPAY ==
[2020-03-08 13:26] LABS: Hemoglobin A1C 5.9 % (<5.7)
[2020-03-08 13:41] LABS: Calculated LDL 121 mg/dL (<100); Cholesterol 199 mg/dL (<200); HDL Cholesterol 55 mg/dL (40-60); Triglyceride 115 mg/dL (<150)
== END 2020-03-08 14:31 ==
LOC: LBN 14:11
PROVIDERS: PCP Emergency Medicine; Visit Provider Emergency Medicine
DX: E11.9 Type 2 diabetes mellitus without complications (principal)
CPT/HCPCS: 80061; 83036

== ENCOUNTER 2020-03-23 08:24 | Emergency (ER) | payer OTHER, BC, SELFPAY ==
[2020-03-23 08:26] VITALS: BP 121/80; PULSE 78; RESP 15; TEMP 36.7; O2SAT 98
--- NOTE | 2020-03-23 08:30 | DI.RAD_ITS ---
EXAM: XR FINGER LT MIDDLE CLINICAL HISTORY: Crush injury, tip of finger, r/o fracture. TECHNIQUE: 2D digital imaging was performed. COMPARISON: None. FINDINGS: BONES: No acute fracture is present. No bony destructive lesion is seen. JOINTS: No dislocation present. SOFT TISSUE: Distal soft tissue defect. No foreign body. IMPRESSION: Soft tissue injury at the tip of the middle finger.. No evidence of acute fracture, dislocation, or subluxation. DATA REPOSITORY: RADIATION DOSE DELIVERED:
--- NOTE | 2020-03-23 08:39 | W.ED.GENAD ---
Discharge Plan Disposition Patient Disposition: HOME Condition: Stable Discharge Details Clinical Impression: Laceration of left middle finger Primary Care Provider: Florin Fung ED Provider: Marta Boss Home Meds and New Rx's Prescriptions: Continued bupropion HCl 150 mg tablet extended release 24 hr 150 mg PO QAM Qty: 30 RF: 6 fluticasone propionate [Children's Flonase Allergy Rlf] 50 mcg/actuation spray,suspension 2 spray JOSE ELIAS DAILY PRN (Reason: allergy symptoms) Qty: 18.2 RF: 4 pravastatin 20 mg tablet 20 mg PO DAILY Qty: 90 RF: 3 clobetasol-emollient 0.05 % cream 15 gm Topical DAILY Qty: 2 RF: 3 amlodipine 5 mg tablet 5 mg PO HS Qty: 90 RF: 3 lisinopril 20 mg tablet 20 mg PO HS Qty: 90 RF: 3 polyethylene glycol 3350 [Miralax] 17 gram/dose Powder 17 g PO DAILY RF: 0 acetaminophen 500 mg tablet 1,000 mg PO Q8H PRN (Reason: pain) Qty: 90 RF: 3 Discharge Instructions Instructions: Finger Laceration (ED) Additional Instructions: Have sutures removed in 5 to 7 days. Leave wound alone for the next 12 to 24 hours. No soaking. You may wash daily under running soap and water. Allow to air dry at least 2 hours a day. Return to the ED for any signs of infection including red streaks, drainage, increased pain or swelling. Follow up with primary care provider in 3-5 days. Return to ED sooner if any worsening or concerns. Increase oral fluids. Please take Tylenol with food every 4-6 hours as needed for pain and swelling. Not use left hand, keep covered when at work or outside doing activities. Stand Alone Forms: Work Release Referrals: Florin Fung, [Primary Care Provider] - Discharge Data Discharge Date/Time-TO BE ENTERED AT DEPARTURE: 03/23/20 10:05 Medical Decision Making <Marta Boss - Last Filed: 03/23/20 11:30> 50-year-old male presents to the ED with left middle finger crush injury. This occurred approximately 1 hour prior to arrival while at work. He crushed his finger in between 2 metal guardrails. He does have a dressing in place upon arrival. Upon initial exam he has an approximate 1 and half centimeter lunar shaped flap laceration to his distal pad of his middle finger. Bleeding is controlled at this time. He does have full range of motion noted to his digit is able to flex and extend. Sensation intact. Denies any other injuries no wrist pain no other injuries noted to his hand. Did not take any medications prior to arrival. He does have history of diabetes, hypertension, restless leg syndrome, right knee replacement, hyperlipidemia and he is a current everyday smoker At this time imaging ordered to rule out fracture or foreign body. We will give a tetanus booster due to the dirty nature of the injury. CLINICAL HISTORY: Crush injury, tip of finger, r/o fracture. TECHNIQUE: 2D digital imaging was performed. COMPARISON: None. FINDINGS: BONES: No acute fracture is present. No bony destructive lesion is seen. JOINTS: No dislocation present. SOFT TISSUE: Distal soft tissue defect. No foreign body. IMPRESSION: Soft tissue injury at the tip of the middle finger.. No evidence of acute fracture, dislocation, or subluxation. Digital block performed as noted in procedure note above, laceration repaired with 3 simple interrupted sutures. Patient was emphasized well from digital block. Laceration was scrubbed with chlorhexidine surgical scrub. Discussed home care, follow-up and suture removal and strict return instructions regarding possible signs of infection which he verbalized understanding. Instructed not to use hand until sutures removed in a week. A splint was applied to prevent reinjury. Patient verbalized understanding. <Luis Enriquez MD - Last Filed: 04/13/20 14:28> Patient seen, examined, and discussed with NICOLE Boss. I agree with treatment plan as discussed/documented. HPI <Marta Boss - Last Filed: 03/23/20 11:30> General Mode of arrival: ambulatory. Date/Time Provider Initiated Documentation: 03/23/20 08:27. Limitations to Documentation: no limitations. Information obtained by: patient. HPI Narrative: 50-year-old male presents to the ED with left middle finger crush injury. This occurred approximately 1 hour prior to arrival while at work. He crushed his finger in between 2 metal guardrails. He does have a dressing in place upon arrival. Upon initial exam he has an approximate 1 and half centimeter lunar shaped flap laceration to his distal pad of his middle finger. Bleeding is controlled at this time. He does have full range of motion noted to his digit is able to flex and extend. Sensation intact. Denies any other injuries no wrist pain no other injuries noted to his hand. Did not take any medications prior to arrival. He does have history of diabetes, hypertension, restless leg syndrome, right knee replacement, hyperlipidemia and he is a current everyday smoker. Related Data Home Medications Medication Instructions Recorded Confirmed polyethylene glycol 3350 [Miralax] 17 g PO DAILY 08/27/18 03/23/20 acetaminophen 1,000 mg PO Q8H PRN #90 tab 09/02/18 03/23/20 fluticasone propionate 50 2 spray JOSE ELIAS DAILY PRN #18.2 ml 08/20/19 03/23/20 mcg/actuation nasal spray,suspension clobetasol-emollient 0.05 % 15 gm TOPICAL DAILY #2 tube 08/31/19 03/23/20 topical cream amlodipine 5 mg tablet 5 mg PO HS #90 tab 10/12/19 03/23/20 lisinopril 20 mg tablet 20 mg PO HS #90 tab 10/12/19 03/23/20 bupropion HCl 150 mg 24 hr tablet, 150 mg PO QAM #30 tab 10/14/19 03/23/20 extended release pravastatin 20 mg tablet 20 mg PO DAILY #90 tab 11/13/19 03/23/20 Previous Rx's Medication Instructions Recorded acetaminophen 1,000 mg PO Q8H PRN #90 tab 09/02/18 fluticasone propionate 50 2 spray JOSE ELIAS DAILY PRN #18.2 ml 08/20/19 mcg/actuation nasal spray,suspension clobetasol-emollient 0.05 % 15 gm TOPICAL DAILY #2 tube 08/31/19 topical cream amlodipine 5 mg tablet 5 mg PO HS #90 tab 10/12/19 lisinopril 20 mg tablet 20 mg PO HS #90 tab 10/12/19 bupropion HCl 150 mg 24 hr tablet, 150 mg PO QAM #30 tab 10/14/19 extended release pravastatin 20 mg tablet 20 mg PO DAILY #90 tab 11/13/19 Allergies Allergy/AdvReac Type Severity Reaction Status Date / Time hydrocodone bitartrate AdvReac Intermediate itch and Verified 03/08/20 07:06 [From Vicodin] rash oxycodone AdvReac withdrawal Verified 03/08/20 07:06 symptoms General Stated Complaint: Laceration JOHN: 3 Review of Systems <Marta Boss - Last Filed: 03/23/20 11:30> Narrative: Constitutional: Negative for weight loss, alert and oriented, well groomed, normal body habitus, appears comfortable. HEENT: Denies trauma, headaches, blurry vision, nasal discharge, sore throat, trouble swallowing. Chest: Denies chest pain, palpitations, irregular rhythm, hypertension. Respiratory: Denies Shortness of breath, cough, hemoptysis. Skin: Crush injury noted to the distal left middle finger as noted in HPI. PFSH <Marta Boss - Last Filed: 03/23/20 11:30> Medical History Diabetes Diverticulitis with perforation (09/18/13) Elevated blood sugar Essential hypertension History of alcohol abuse Hyperlipidemia Obesity Post-traumatic osteoarthritis of right knee (11/03/15) Psoriasis Restless leg Social anxiety disorder Tobacco use disorder Surgical History Colonoscopy - MAC 02/26/14, (diverticulosis), Dr Sahu recommends repeat at 48 yrs Meniscectomy (~2006) RIGHT arthroscopy Open Carpal Tunnel release left Family History Mother Essential hypertension Hyperlipidemia Heart disease Heart valve disease Father Essential hypertension Diabetes Sister Personal history of malignant neoplasm BREAST Brother Essential hypertension Diabetes PATERNAL AUNT Personal history of malignant neoplasm LUNG Social History Smoking/Tobacco Use Status: Current every day Quit status: considering quitting Smoking risk assessment performed?: Yes Alcohol Intake: current Alcohol Intake frequency: other Alcohol type: beer Drug use: Never Household members: spouse 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 Appears stated age. Normal body habitus. Head: Normocephalic, no trauma. Eyes: Pupils PERRLA, Red reflex noted, EOM's intact. Eyelids symmetrical without lesions, discharge, or swelling. ENT: Bilateral TM's WNL, External ear normal to inspection, no mastoid TTP, swelling, or erythema, Nasal turbinates WNL, no nasal discharge. Normal dentition, Posterior pharynx WNL, no exudate. Chest: RRR, Normal S1, S2, distal pulses intact. Resp: Lungs clear to auscultation bilaterally, no wheezes, rales, or rhonchi. Musculoskeletal: Normal gait, 5/5 strength to all four extremities. Skin: Has a flap laceration noted to the palmar aspect of his left middle finger. Full range of motion to the digit, no active bleeding upon arrival. Capillary refill less than 2 sec. Neurologic: Cranial nerves II-XII intact. Alert and oriented x 3. DTR's intact. Hematologic/Lymphatic: No ecchymosis, no lymphadenopathy. Course <[facility] Filed: 03/23/20 11:30> Vital Signs Vital signs: Vital Signs Temperature 36.7 C 03/23/20 08:26 Pulse 78 03/23/20 08:26 Respiratory Rate 15 03/23/20 08:26 Blood Pressure 121/80 03/23/20 08:26 Pulse Oximetry 98 03/23/20 08:26 Temperature 36.7 C 03/23/20 08:26 Temperature Source Temporal Artery Scan 03/23/20 08:26 Pulse 78 03/23/20 08:26 Respiratory Rate 15 03/23/20 08:26 Respiratory Effort Non-Labored 03/23/20 08:31 Blood Pressure 121/80 03/23/20 08:26 Blood Pressure Position Sitting 03/23/20 08:26 Pulse Oximetry 98 03/23/20 08:26 Oxygen Delivery Method Room Air 03/23/20 08:26 Oxygen Flow Rate 0 03/23/20 08:26 Pain Level 3 03/23/20 08:26 Procedures <Marta [facility] Filed: 03/23/20 11:30> Laceration Laceration 1: Site: hand (middle finger) Side (If applicable): left Size (cm): 1.5 Description: flap Depth: simple, single layer Local Anesthetic: Lidocaine 1% Amount of anesthesia used (mL): 3 Pre-repair: wound explored, irrigated extensively and deep structures intact Skin layer closed with: nylon Size (cm): 4-0 Number of sutures: 3 Technique: simple, interrupted Nerve Block Nerve Block 1: Local Anesthetic: Lidocaine 1% Amount of anesthesia used (mL): 3 Side: left Nerve Blocks: digital (4 sided ring block) Procedure Successful: Yes Patient Tolerated Procedure: well Complications: none
[2020-03-23] MEDS: Acetaminophen 325 MG TAB 650 MG PO (08:50)
--- NOTE | 2020-03-23 12:58 | NUR.NOTE ---
telfa over wound with tube dressing.Nursing Note:
--- NOTE | 2020-03-25 11:13 | PDOC.ERCMPRO ---
- If Service Date Differs Date of service: 03/25/20 Time of Service: 11:13 Care Management Progress Note Kelvin was seen in the ED by Marta Boss NP, on 03/23/20 for a laceration of his left middle finger. He reportedly crushed his fingers between 2 guardrails while at work. Today, CM is contacted by patient for assistance completing a Physician's Statement for [employer] related to the 03/23/20 work injury. The form is forwarded to CM via email. HUMAIRA completes the form, obtains the ED provider's signature and emails it back to Kelvin for submission with [employer]. Kelvin is provided contact information for HUMAIRA and instructed to call if I can be of further assistance.
== END 2020-03-23 10:05 | disposition home or self-care (01) ==
PROVIDERS: Emergency Provider Registered Nurse Emergency; PCP Emergency Medicine
DX: S67.193A Crushing injury of left middle finger, initial encounter (principal); S61.213A Laceration without foreign body of left middle finger without damage to nail, initial encounter; W23.1XXA Caught, crushed, jammed, or pinched between stationary objects, initial encounter; Y99.0 Civilian activity done for income or pay; E11.9 Type 2 diabetes mellitus without complications; I10 Essential (primary) hypertension
CPT/HCPCS: 12001; 90471; 73140

== ENCOUNTER 2020-08-24 11:45 | Outpatient (REF) | payer BC, SELFPAY ==
[2020-08-24 12:38] LABS: Hemoglobin A1C 6.5 % (<5.7)
== END 2020-08-24 11:46 | disposition home or self-care (01) ==
LOC: LBN 11:45
PROVIDERS: PCP Emergency Medicine; Visit Provider Emergency Medicine
DX: E11.9 Type 2 diabetes mellitus without complications (principal)
CPT/HCPCS: 83036

== ENCOUNTER 2021-07-28 04:10 | Outpatient (CLI) | payer BC, SELFPAY ==
[2021-07-28 08:01] LABS: Hemoglobin A1C 6.9 % (<5.7)
[2021-07-28 08:05] LABS: Microalb ug/mg Crea 11.6 ug/mg Cr
[2021-07-28 08:08] LABS: Anion Gap 10.2 mmol/L (3-11); BUN 16 mg/dL (7-18); CO2 24.8 mmol/L (21.0-32.0); Calcium 8.8 mg/dL (8.5-10.1); Calculated LDL 139 mg/dL (<100); Chloride 101 mmol/L (98-107); Cholesterol 216 mg/dL (<200); Glucose 118 mg/dL (74-106); HDL Cholesterol 64 mg/dL (40-60); Potassium 4.2 mmol/L (3.5-5.1); Sodium 136 mmol/L (136-145); Triglyceride 69 mg/dL (<150)
== END 2021-07-28 04:11 | disposition home or self-care (01) ==
LOC: LBO 04:10
PROVIDERS: Emergency Medicine; PCP Family Medicine; Visit Provider Family Medicine
DX: E11.9 Type 2 diabetes mellitus without complications (principal); E78.5 Hyperlipidemia, unspecified; I10 Essential (primary) hypertension
CPT/HCPCS: 36415; 80048; 80061; 82043; 82570; 83036

== ENCOUNTER 2022-01-11 09:56 | Emergency (ER) | payer OTHER, SELFPAY ==
[2022-01-11 10:01] VITALS: BP 167/89; PULSE 94; RESP 22; TEMP 36; O2SAT 96
--- NOTE | 2022-01-11 10:08 | ED.GENADUL_ITS ---
Discharge Plan Disposition Patient Disposition: HOME Condition: Stable Discharge Details Clinical Impression: Burn of second degree of left forearm, initial encounter Primary Care Provider: Isaac Bonilla ED Provider: Marta Boss Home Meds and New Rx's Prescriptions: New tramadol 50 mg tablet 50 mg PO Q8H PRN (Reason: pain) Qty: 7 0RF Rx Instructions: Take with food do not operate heavy machinery or drive on this medication. Continued atorvastatin 40 mg tablet 40 mg PO DAILY Qty: 90 3RF polyethylene glycol 3350 [Miralax] 17 gram/dose powder 17 g PO DAILY Qty: 510 8RF amlodipine 5 mg tablet 5 mg PO HS Qty: 90 3RF lisinopril 20 mg tablet 20 mg PO HS Qty: 90 3RF clobetasol-emollient 0.05 % cream 1 applic Topical DAILY Qty: 60 6RF acetaminophen 500 mg tablet 1,000 mg PO Q8H PRN (Reason: pain) Qty: 90 3RF Discharge Instructions Instructions: Second-Degree Burn (ED), Acute Wound Care (ED) Additional Instructions: Please use the bacitracin 3 times daily to attempt to get the tar off the burn area. Literature suggest you may also use olive. I do suspect a second-degree or partial-thickness burn underlying the tar. Please return sooner for any signs of infection, red streaks, purulent or colored drainage, fever chills or any concerns. Please follow-up with wound clinic within the next 3-5 days. . Please change the dressing daily keep it clean and dry. Please call [phone] to make an appointment at the burn clinic with [facility] which is in [place] Follow up with primary care provider in 3-5 days. Return to ED sooner if any worsening or concerns. Increase oral fluids. Please take Tylenol or Ibuprofen with food every 4-6 hours as needed for pain and swelling. Stand Alone Forms: Work Release Referrals: Isaac Bonilla, FOOD AND BEVERAGE ATTENDANT [Primary Care Provider] - 1 week Medical Decision Making 1013:Bacitracin ordered to attempt to remove tar, check to staff to clean up tar with cold washcloth, ice water, tramadol 50 mg ordered p.o. Will apply lidocaine post tar removal. Approximate burn surface area 4.5%. 1030: IV ordered hydromorphone 1 L normal saline for patient comfort. 1124: Tech staff at bedside for attempt to speak with tire removal to better eval underlying burn. 1139: Patient reevaluation moderate amount of the tarry has been removed however patient is complaining of pain. It does appear the patient does have blisters and a second-degree burn noted to his left volar surface of the forearm. Instructed staff to apply the LMX or lidocaine cream for approximately 15 minutes and then attempt to removal again. Will consult with [facility] burn center for consultation and follow-up care. 1140: [facility] Transfer center contacted for Burn consultation. 1242: Have not received call back from burn center however I will give the patient the contact information and have patient follow-up in the burn clinic later this week. Patient placed on tramadol instructed to apply bacitracin to the burn area and continue to get the tar off the forearm. Discussed and instructed on strict return instructions for signs of infection. 1248: Spoke with Dr. Sharpe with [facility] burn center she recommends mineral oil to get the tire off, Mepilex Ag dressing leave dressing in place x1 week and can be seen next in the burn clinic. She left the phone number for follow-up instructed with patient. Patient given tramadol tablets to go. Medical Records Medical records reviewed: Yes I reviewed the patient's medical records. HPI General Mode of arrival: ambulatory . Date/Time Provider Initiated Documentation: 01/11/22 10:01 . Limitations to Documentation: no limitations . Information obtained by: patient and RN notes reviewed . HPI Narrative: 50-year-old male presents to the ER with a left volar aspect forearm tar burn which occurred approximately an hour prior to arrival. 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 He does appear to have possible burn or any tar however my initial exam is limited. He has distal sensation circulation and movement intact to his left hand. It is noncircumferential. He reports that he is up-to-date on his tetanus vaccination within the last 5 to 10 years. He did not take any medications prior to arrival. He does have a past medical history of diabetes, hypertension, restless legs, hyperlipidemia, diverticulitis and psoriasis. Related Data Home Medications Medication Instructions Recorded Confirmed acetaminophen 500 mg tablet 1,000 mg PO Q8H PRN pain #90 tabs 09/02/18 11/08/21 amlodipine 5 mg tablet 5 mg PO HS #90 tabs 08/23/21 11/08/21 clobetasol-emollient 0.05 % 1 applic topical DAILY #60 grams 08/23/21 11/08/21 topical cream lisinopril 20 mg tablet 20 mg PO HS #90 tabs 08/23/21 11/08/21 polyethylene glycol 3350 17 17 g PO DAILY #510 grams 08/23/21 11/08/21 gram/dose oral powder (Miralax) atorvastatin 40 mg tablet 40 mg PO DAILY #90 tabs 11/08/21 11/08/21 tramadol 50 mg tablet 50 mg PO Q8H PRN pain #7 tabs 01/11/22 Previous Rx's Medication Instructions Recorded acetaminophen 500 mg tablet 1,000 mg PO Q8H PRN pain #90 tabs 09/02/18 amlodipine 5 mg tablet 5 mg PO HS #90 tabs 08/23/21 clobetasol-emollient 0.05 % 1 applic topical DAILY #60 grams 08/23/21 topical cream lisinopril 20 mg tablet 20 mg PO HS #90 tabs 08/23/21 polyethylene glycol 3350 17 17 g PO DAILY #510 grams 08/23/21 gram/dose oral powder (Miralax) atorvastatin 40 mg tablet 40 mg PO DAILY #90 tabs 11/08/21 tramadol 50 mg tablet 50 mg PO Q8H PRN pain #7 tabs 01/11/22 Allergies Allergy/AdvReac Type Severity Reaction Status Date / Time hydrocodone bitartrate AdvReac Intermediate itch and Verified 11/08/21 08:10 [From Vicodin] rash oxycodone AdvReac withdrawal Verified 11/08/21 08:10 symptoms General Stated Complaint: ChemExpose JOHN: 3 Review of Systems All systems reviewed & are unremarkable except as noted in HPI and below PFSH All Active Problems (Updated 01/11/22 @ 12:39 by Marta Boss NP) Burn of second degree of left forearm, initial encounter (Acute) Eczema (Acute) Episodic, diffuse-followed by Dr. Medina-Zita Collins Chronic rhinitis (Acute) COVID (Acute) 2021-uri/fatigue Diabetes (Chronic) Social anxiety disorder (Chronic) Essential hypertension (Chronic) Restless leg (Acute) Hyperlipidemia (Acute) Tobacco use disorder (Acute) 2020 quit , 30 pk yr hx ([id number] chest CT screen offered-patient will consider this) Diverticulitis with perforation (Acute 09/18/13) 1.2013 , hospitalized at [facility] 2. 10/2021 probable episode-treated clinically as an outpatient Psoriasis (Chronic) Medical History (Updated 01/11/22 @ 12:39 by Marta Boss NP) History of alcohol abuse Obesity Post-traumatic osteoarthritis of right knee (11/03/15) Surgical History (Updated 11/08/21 @ 08:22 by Rober Heredia MD) History of arthroscopy of knee History of knee replacement History of rectal surgery Status post carpal tunnel release Status post meniscectomy Family History Mother Essential hypertension Hyperlipidemia Heart disease Heart valve disease Father Essential hypertension Diabetes Sister Personal history of malignant neoplasm BREAST Brother Essential hypertension Diabetes PATERNAL AUNT Personal history of malignant neoplasm LUNG Social History (Updated 11/10/21 @ 13:05 by Nazanin Cox) Smoking/Tobacco Use Status: Former Tobacco Use Quit Date: 11/10/20 Pack-years: 35 Tobacco: How many years used: 30 Quit status: considering quitting Smoking risk assessment performed?: Yes Alcohol Intake: current Alcohol Intake frequency: a few times a month Alcohol type: beer Drug use: Never Counseling given: No Caregiver/Support person: Yes Household members: spouse Communication Needs: None Do you need help understanding health information?: Rarely 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 Pets and animals: Yes Pets and animals: cat(s) and dog(s) Sexually active: Yes Do you think of yourself as: straight/heterosexual Current gender identity: male What is your relationship status?: How often do you talk on the phone with friends or family?: three or more times per week How often do you get together with friends or relatives?: three or more times per week How often do you attend episcopalian or cheondoism services?: 4 or more times per year Do you belong to any clubs or organized social groups?: no Panel score (0-1 are the most socially isolated patients): 3 Isadora/Islam: Christianity Seatbelt use: always Helmet use: Yes Helmet use: always Drive intox or ride w/intox gas truck driver: No Do you feel safe at home: Yes Do you feel safe in your relationship?: Yes Exam Extrem Elbow/forearm/wrist images: 1. Dry tar noted to the volar aspect of his left forearm, Course Vital Signs Vital signs: Vital Signs Temperature 36.0 C L 01/11/22 10:01 Pulse 94 H 01/11/22 10:01 Respiratory Rate 22 01/11/22 10:01 Blood Pressure 167/89 H 01/11/22 10:01 Pulse Oximetry 96 01/11/22 10:01 Temperature 36.0 C L 01/11/22 10:01 Pulse 94 H 01/11/22 10:01 Respiratory Rate 22 01/11/22 10:01 Blood Pressure 167/89 H 01/11/22 10:01 Blood Pressure Position Supine 01/11/22 10:01 Pulse Oximetry 96 01/11/22 10:01 Oxygen Delivery Method Room Air 01/11/22 10:01 Oxygen Flow Rate 0 01/11/22 10:01 Pain Level 9 01/11/22 10:01 Comment 01/11/22 10:01
[2022-01-11] MEDS: traMADol 50 MG TAB PO (10:14)
[2022-01-11] MEDS: Bacitracin 30 GM TUBE TP (10:36)
[2022-01-11] MEDS: Normal Saline 1,000 ML 1000 ML IV (10:47)
[2022-01-11] MEDS: HYDROmorphone 2 MG/ML VIAL 0.5 MG IVP (10:47)
[2022-01-11] MEDS: Ondansetron 4 MG/2 ML VIAL IVP (10:48)
[2022-01-11] MEDS: Lidocaine 4% Cream 5 GM TUBE TP (11:43)
[2022-01-11] MEDS: Aquaphor Ointment 99 GM JAR TP (13:41)
== END 2022-01-11 14:01 | disposition home or self-care (01) ==
PROVIDERS: Emergency Provider Registered Nurse Emergency; PCP Nurse Practitioner Family
DX: T22.212A Burn of second degree of left forearm, initial encounter (principal); T31.0 Burns involving less than 10% of body surface; X19.XXXA Contact with other heat and hot substances, initial encounter; Y93.H3 Activity, building and construction; Y99.0 Civilian activity done for income or pay; Z87.891 Personal history of nicotine dependence
CPT/HCPCS: 96361; 96374; 96375; 96376; 99284; 99283; J2405

== ENCOUNTER 2022-03-23 06:59 | Day surgery (SDC) | payer BC, SELFPAY ==
[2022-03-23 07:27] VITALS: BP 148/97; PULSE 86; RESP 16; TEMP 36.4; O2SAT 97
[2022-03-23] MEDS: Tropicam./Phenyleph. (1/2.5%) 5 ML BTL OD ×2 (07:36→07:41)
--- NOTE | 2022-03-23 07:39 | W.ANESPRE ---
General Info Date of Service Date Performed: 03/23/22 Height: 5 ft 8 in Weight: 116.2 kg Body Mass Index (BMI): 38.9 Surgical Procedure: Operation Date: 03/23/22 07:40 Proposed Procedure Side Surgeon p Cataract Extraction with IOL Implant Right Misha Alfaro MD Meds Allergies and Home Medications Allergies Allergy/AdvReac Type Severity Reaction Status Date / Time hydrocodone bitartrate AdvReac Intermediate itch and Verified 03/23/22 07:26 [From Vicodin] rash oxycodone AdvReac withdrawal Verified 03/23/22 07:26 symptoms Home Medication Medication Instructions Recorded acetaminophen 500 mg tablet 1,000 mg PO Q8H PRN pain #90 tabs 09/02/18 amlodipine 5 mg tablet 5 mg PO HS #90 tabs 08/23/21 clobetasol-emollient 0.05 % 1 applic topical DAILY #60 grams 08/23/21 topical cream lisinopril 20 mg tablet 20 mg PO HS #90 tabs 08/23/21 polyethylene glycol 3350 17 17 g PO DAILY #510 grams 08/23/21 gram/dose oral powder (Miralax) atorvastatin 40 mg tablet 40 mg PO DAILY #90 tabs 11/08/21 Current Visit Medications: Current Medications Generic Name Dose Route Start Last Admin Trade Name Freq PRN Reason Stop Dose Admin Acetaminophen 1,000 mg 03/23/22 06:00 Acetaminophen 500 Mg Tab PO Q4H PRN PRN Miscellaneous Medication 0 ml 03/23/22 06:00 Prednisolone 1%, Moxifloxacin 0.5%, Nepafenac 0.1% 5ml Btl OD [facility] Miscellaneous Medication 0 ml 03/23/22 06:00 03/23/22 07:36 Tropicam./Phenyleph. (1/2.5%) 5 Ml Btl OD 1 drp DIRECTED NIGEL Administration Tetracaine HCl 0 ml 03/23/22 06:00 Tetracaine 0.5% 4 Ml Btl OD [facility] PFSH Active Problems Active Problems: Problem Status Onset Code Posterior subcapsular age-related cataract, right eye H25.041 Obesity Eczema L30.9 Diabetes E11.9 Essential hypertension I10 Hyperlipidemia E78.5 Tobacco use disorder F17.200 Diverticulitis with perforation 09/18/13 K57.80 Psoriasis L40.9 Medical History Medical History COVID 2021-uri/fatigue Post-traumatic osteoarthritis of right knee (11/03/15) Surgical History Surgical History History of arthroscopy of knee History of knee replacement History of rectal surgery Status post carpal tunnel release Status post meniscectomy Tobacco Smoking/Tobacco Use Status: Former Tobacco Use Alcohol Alcohol Intake: current Alcohol intake frequency: a few times a month Alcohol type: beer Substance Use Substance use: Never Vital Signs and Lab Results Vital Signs Most Recent Vital Signs in EMR: Most Recent Vital Signs Temp Pulse Resp BP Pulse Ox 36.4 C L 86 16 148/97 H 97 03/23/22 07:27 03/23/22 07:27 03/23/22 07:27 03/23/22 07:27 03/23/22 07:27 Lab Results Blood Type / Crossmatch: No Data to Display Complete Blood Count: No Data to Display Complete Metabolic Panel: No Data to Display Liver Function Panel: No Data to Display Coagulation Panel: No Data to Display Cardiac Panel: No Data to Display Arterial Blood Gas: No Data to Display Venous Blood Gas: No Data to Display Pancreas Panel: No Data to Display Thyroid Panel: No Data to Display Infectious Disease: No Data to Display Blood Cultures: No Data to Display Toxicology Panel: No Data to Display Anesthesia Assessment and Plan Anesthesia History Personal History: No History of Anesthesia Complications Family History: No Family History of Anesthesia Complications Exercise Tolerance Exercise Tolerance: Metabolic Equivalents>4 Pertinent Negatives Pertinent Negatives: No Symptoms of GERD Cardiac & Pulmonary Exam Cardiac Exam: Normal S1/S2 Heart Sounds Pulmonary Exam: Clear Bilateral Breath Sounds Implantable Cardiac Device Does patient have a Pacemaker or an ICD?: No Airway Exam Known Difficult Airway: No Mallampati Class: 2 Mouth Opening: Normal (> 3cm) Thyromental Distance: Greater than 3 cm Facial Hair: Full Winkler Neck Range of Motion: Full ROM Neck Circumference: Normal Teeth Condition: Normal Dentition ASA Classification ASA Score: ASA 2 Emergency Case?: No NPO Status NPO Status: Full Stomach Anesthesia Plan Resuscitation Status: Full Code Anesthesia Technique: MAC Anesthesia Airway Planned: Natural Airway Monitors Used: Standard Monitors Preoperative Comments:: Pt. drove himself, had a cup of coffee with cream this morning. He will proceed understanding that his will drive him home and no sedation will be given for this procedure.
[2022-03-23 07:42] VITALS: BMI 38.9
[2022-03-23] MEDS: Tetracaine 0.5% 4 ML BTL OD (08:27)
[2022-03-23] MEDS: Balanced Salt Soln.-PLUS 500 ML BAG (08:29)
[2022-03-23] MEDS: Lidocaine 2% Jelly 6 ML SYR (08:30)
[2022-03-23] MEDS: Duovisc Viscoelastic System EACH 1 EACH (08:30)
[2022-03-23] MEDS: Povidone-Iodine Ophth 30 ML BTL (08:31)
--- NOTE | 2022-03-23 08:53 | W.PM.DSUDISC ---
Date of service: 03/23/22 Time of Service: 08:53 Discharge Plan Disposition Patient Disposition: HOME Condition: Good Discharge Details Attending Provider: Misha Alfaro Primary Care Provider: Isaac Bonilla Home Meds and New Rx's Prescriptions: No Action atorvastatin 40 mg tablet 40 mg PO DAILY Qty: 90 3RF polyethylene glycol 3350 [Miralax] 17 gram/dose powder 17 g PO DAILY Qty: 510 8RF amlodipine 5 mg tablet 5 mg PO HS Qty: 90 3RF lisinopril 20 mg tablet 20 mg PO HS Qty: 90 3RF clobetasol-emollient 0.05 % cream 1 applic Topical DAILY Qty: 60 6RF acetaminophen 500 mg tablet 1,000 mg PO Q8H PRN (Reason: pain) Qty: 90 3RF Discharge Instructions Stand Alone Forms: Post-op Topical Cataract, Elizabeth Huertaey ([facility]) Discharge Orders Discharge Orders: Discharge Order (Routine); Ordered 03/23/22 Ordered By: Misha Alfaro DS: Diagnosis Discharge Diagnosis (1) Posterior subcapsular age-related cataract, right eye: Status: Resolved
--- NOTE | 2022-03-23 08:54 | ROE_ITS ---
Date of service: 03/23/22 Time of Service: 08:54 Operative Note Operative Note DATE OF PROCEDURE: 03/23/22 PRE-OP DIAGNOSIS: Posterior subcapsular cataract, right eye POST-OP DIAGNOSIS: same PROCEDURE: Cataract extraction using phacoemulsification with intraocular lens implant, right eye SURGEON: Misha Alfaro ANESTHESIA TYPE: Local By Surgeon and MAC Refer to Anesthesia Record ESTIMATED BLOOD LOSS: 0 PATHOLOGY: none sent COMPLICATIONS: None Patient was transported to: same day Patient's condition: stable Implants: Valentín [employer] Valentín/MARTIN Tecnis [id number] Indications: Progressive visual loss due to cataract, right eye Procedure Description: CATARACT SURGERY OPERATIVE REPORT PREOPERATIVE DIAGNOSIS: 1. Posterior subcapsular cataract, right eye POSTOPERATIVE DIAGNOSIS: Same OPERATION: 1. Cataract extraction using phacoemulsification with posterior chamber intraocular lens implant, right eye. IOL: [place] [employer]/Model: Valentín [employer] Valentín / MARTIN Tecnis [id number] IOL Power: + 22.5 diopters IOL Serial Number: [id number] Optic Diameter: 6.0mm Haptic/Overall Diameter: 13.0mm PHACO INFO: Dhruv [employer]Support[employer]istant[employer] Vision System with OZil and Active Fluidics Cumulative Dispersed Energy (CDE): 0.03 seconds SURGEON: Misha Alfaro MD, CRUZ ANESTHESIA: Monitored Anesthesia Care (MAC), with local sub-tenon's anesthetic infiltration COMPLICATIONS: None SPECIMENS: None INDICATIONS FOR PROCEDURE: The patient is a 52-year-old male with history of progressive decreased vision in his right eye secondary to the development of significant posterior subcapsular cataract. The option of cataract surgery was offered to the patient and he wished to proceed. PROCEDURE: The correct surgical eye was identified and marked as the right eye and the pupil was dilated in the preoperative area using mydriatics and cycloplegics. The dilated pupil size was 7.0 mm. The patient elected to proceed without oral sedation. The patient was brought to the operating room where cardiopulmonary monitoring was instituted and surgical time-out was performed, confirming the correct operative eye and IOL power. Topical anesthesia was administered and ophthalmic povidone-iodine 5% was instilled into the conjunctival fornices. Lidocaine gel was applied to the cornea and the nyla-ocular area was prepped with Betadine 10% solution and draped in the usual sterile fashion for intraocular surgery, including an aperture drape. A Tegaderm transparent film dressing was cut in half and used to cover the lashes and lid margins. Care was taken to sequester the lashes and lid margins under the Tegaderm dressing. A lid speculum was placed between the lids of the operative eye and the Dhruv LuxOR Revalia operating microscope was maneuvered into position. Teto scissors were then used to make a conjunctival buttonhole approximately 6mm posterior to the limbus in the inferonasal quadrant. Blunt dissection was carried out to expose bare sclera, and a blunt-tipped sub-tenon?s anesthesia cannula was introduced and passed posteriorly along the globe where non- preserved plain lidocaine was injected into posterior sub-Tenon?s space. A sideport knife was used to make a paracentesis port inferotemporally. Intraocular phenylephrine/lidocaine was injected into the anterior chamber. The anterior chamber was filled with viscoelastic. A keratome knife was used to construct a 2-plane near-clear corneal tunnel extending 2.0mm into clear cornea superiortemporally. A flap was raised on the anterior capsule and capsulorhexis forceps were used to complete a continuous curvilinear capsulorhexis of 5.5 mm. Capsulorhexis was challenging, as the anterior capsule was extremely thin and it was constant erratic eye movement. The eye had to be fixated with a second hand for stability. Balanced salt solution was then used to perform cortical cleaving hydrodissection and nuclear hydrodelineation until the lens could be freely rotated within the capsular bag. The lens nucleus was then disassembled and removed within the capsular bag and iris plane using phacoemulsification. Residual cortical material was removed using the I/A handpiece. The posterior capsule was carefully polished to remove as much residual lens epithelial cells as safely possible. The capsular bag was then inflated and the anterior chamber deepened with viscoelastic. The lens implant described above was inserted into the capsular bag using the MARTIN [place] Injector. A Kuglen hook was used to dial the IOL into position. Residual viscoelastic was then removed first from posterior to the IOL, then from the anterior chamber using the I/A handpiece. The lens implant was noted to center nicely within the capsular bag. The incisions were stromally hydrated, and the anterior chamber was reformed using BSS. Then 0.5cc of moxifloxacin 1.0mg/ml were injected into the capsular bag and anterior chamber. The incisions were checked with a Weck spear and found to be secure. Several drops of ophthalmic povidone-iodine 5% were then applied to the eye followed by two drops of Imprimis combination prednisolone/moxifloxacin/nepafenac solution. The drapes were removed and a clear plastic protective eye shield was placed over the eye. The patient was then returned to [facility] Day Surgery in stable condition.
[2022-03-23 08:55] VITALS: BP 118/93; PULSE 84; RESP 16; TEMP 36.8; O2SAT 97
--- NOTE | 2022-03-23 09:12 | W.ANESPOSTOP ---
Postoperative Evaluation Date, Time and Location Date Performed: 03/23/22 Time Performed: 09:05 Patient Location: Day Surgery Unit Vital Signs Most Recent Imported Vital Signs: Most Recent Vital Signs Temp Pulse Resp BP Pulse Ox 36.8 C 84 16 118/93 H 97 03/23/22 08:55 03/23/22 08:55 03/23/22 08:55 03/23/22 08:55 03/23/22 08:55 Pain Score Most Recent Pain Score: Most Recent Pain Score Pain Level 0 03/23/22 08:55 Assessment Mental Status: Awake (Alert & Oriented to Patient Baseline) Airway and Respiratory Function: Patent airway with normal (patient baseline) respiratory exam Cardiovascular Function: Hemodynamically Stable Hydration Status: Adequately Hydrated Nausea & Vomiting: No Nausea or Vomiting Pain: Pt. Denies Any Pain Peripheral Nerve Block: Patient did not receive a nerve block
== END 2022-03-23 09:12 | disposition home or self-care (01) ==
LOC: SUR 06:59
PROVIDERS: PCP Nurse Practitioner Family; Visit Provider Ophthalmology
PROC: (CPT 66984; principal; 2022-03-23 07:30)
DX: H25.041 Posterior subcapsular polar age-related cataract, right eye (principal); E11.9 Type 2 diabetes mellitus without complications; I10 Essential (primary) hypertension
CPT/HCPCS: 66984; V2632

== ENCOUNTER 2022-06-14 04:07 | Outpatient (CLI) | payer BC, SELFPAY ==
[2022-06-14 12:56] LABS: TSH (W/Ref FT4) 6.01 uIU/mL (0.36-3.74)
== END 2022-06-14 04:08 | disposition home or self-care (01) ==
LOC: LOS 04:07
PROVIDERS: PCP Nurse Practitioner Family; Visit Provider Nurse Practitioner Family
DX: R63.5 Abnormal weight gain (principal)
CPT/HCPCS: 36415; 84439; 84443

== ENCOUNTER 2023-03-05 01:29 | Outpatient (CLI) | payer BC, SELFPAY ==
[2023-03-05 12:34] LABS: CREATININE 1.2 mg/dL (0.70-1.30); Calculated LDL 40 mg/dL (<100); Cholesterol 137 mg/dL (<200); Estimated GFR 71.42 (mL/min/1.73m2); HDL Cholesterol 48 mg/dL (40-60); Potassium 4.3 mmol/L (3.5-5.1); TSH 5.33 uIU/mL (0.36-3.74); TSH (W/Ref FT4) 5.33 uIU/mL (0.36-3.74); Triglyceride 246 mg/dL (<150)
[2023-03-05 12:58] LABS: FREE T4 0.89 ng/dL (0.76-1.46)
== END 2023-03-05 01:30 | disposition home or self-care (01) ==
LOC: LOS 01:31
PROVIDERS: PCP Nurse Practitioner Family; Visit Provider Nurse Practitioner Family
DX: E78.5 Hyperlipidemia, unspecified (principal); E03.9 Hypothyroidism, unspecified; E11.9 Type 2 diabetes mellitus without complications; I10 Essential (primary) hypertension
CPT/HCPCS: 36415; 80061; 82565; 83036; 84132; 84439; 84443

== ENCOUNTER → 2023-12-27 13:56 | Outpatient (CLI) | payer BC, SELFPAY ==
--- NOTE | 2023-12-27 13:07 | DI.RAD_ITS ---
Exam(s) XR LUMBAR SPINE COMPLETE EXAM: XR LUMBAR SPINE COMPLETE CLINICAL HISTORY: back pain, twisting, lifting injury, M54.50. TECHNIQUE: 2D digital imaging was performed of the lumbar spine. Five images were obtained. AP, la teral, right oblique, left oblique and L5-S1 spot views were obtained. COMPARISON: CR ABD FLAT UPRIGHT PA CHEST from 09/21/2013 FINDINGS: No acute fracture or subluxation. The disc heights are well maintained. The vertebral bodies are no rmally mineralized. Atherosclerotic calcification is seen in the aorta. IMPRESSION: No acute fracture or subluxation in the lumbar spine. DATA REPOSITORY: RADIATION DOSE DELIVERED:
== END ==
PROVIDERS: PCP Nurse Practitioner Family; Visit Provider Physician Assistant
DX: M54.50 Low back pain, unspecified (principal)
CPT/HCPCS: 72110

== ENCOUNTER 2024-03-02 13:23 | Outpatient (CLI) | payer BC, SELFPAY ==
[2024-03-02 07:32] LABS: CREATININE 1.4 mg/dL (0.70-1.30); Calculated LDL 51 mg/dL (<100); Cholesterol 126 mg/dL (<200); Estimated GFR 58.99 (mL/min/1.73m2); HDL Cholesterol 58 mg/dL (40-60); Triglyceride 88 mg/dL (<150)
[2024-03-02 09:02] LABS: Hemoglobin A1C 5.6 % (<5.7)
== END 2024-03-02 13:24 | disposition home or self-care (01) ==
LOC: LBO 13:23
PROVIDERS: PCP Nurse Practitioner Family; Visit Provider Nurse Practitioner Family
DX: E11.9 Type 2 diabetes mellitus without complications (principal); Z79.4 Long term (current) use of insulin; E78.5 Hyperlipidemia, unspecified; I10 Essential (primary) hypertension
CPT/HCPCS: 36415; 80061; 82565; 83036

== ENCOUNTER 2024-10-16 08:04 | Outpatient (CLI) | payer BC, SELFPAY ==
[2024-10-16 08:49] LABS: Calculated LDL 187 mg/dL (<100); Cholesterol 257 mg/dL (<200); HDL Cholesterol 53 mg/dL (>or=40); Triglyceride 89 mg/dL (<150)
== END 2024-10-16 08:05 | disposition home or self-care (01) ==
LOC: LBO 08:04
PROVIDERS: PCP Nurse Practitioner Family; Visit Provider Nurse Practitioner Family
DX: Z13.220 Encounter for screening for lipoid disorders (principal)
CPT/HCPCS: 36415; 80061

== ENCOUNTER 2025-03-22 14:19 | Outpatient (CLI) | payer BC, SELFPAY ==
[2025-03-22 15:25] LABS: Cholesterol 235 mg/dL (<200); HDL Cholesterol 49 mg/dL (>or=40); TSH (W/Ref FT4) 4.45 uIU/mL (0.36-3.74); Triglyceride 574 mg/dL (<150)
[2025-03-22 15:40] LABS: LDL CHOLESTEROL 142 mg/dL (<100)
[2025-03-23 23:38] LABS: PSA, Screening 0.6 ng/mL (<=3.5)
== END 2025-03-22 14:20 | disposition home or self-care (01) ==
LOC: LBO 14:22
PROVIDERS: PCP Nurse Practitioner Family; Visit Provider Nurse Practitioner Family
DX: Z12.5 Encounter for screening for malignant neoplasm of prostate (principal); E03.9 Hypothyroidism, unspecified; Z13.220 Encounter for screening for lipoid disorders
CPT/HCPCS: 36415; 80061; 83721; 84153; 84439; 84443

== ENCOUNTER 2025-03-26 08:16 | Day surgery (SDC) | payer BC, SELFPAY ==
[2025-03-26 08:39] VITALS: BP 125/82; PULSE 63; RESP 16; TEMP 36.6; O2SAT 96
--- NOTE | 2025-03-26 08:59 | W.ANESPRE ---
General Info Date of Service Date Performed: 03/26/25 Height: 5 ft 8 in Weight: 104.4 kg Body Mass Index (BMI): 34.9 Surgical Procedure: Operation Date: 03/26/25 09:50 Proposed Procedure Side Surgeon miquel Larson MD Meds Allergies and Home Medications Allergies Allergy/AdvReac Type Severity Reaction Status Date / Time hydrocodone bitartrate (From AdvReac Intermediate itch and Verified 03/26/25 08:38 Vicodin) rash oxycodone AdvReac withdrawal Verified 03/26/25 08:38 symptoms Home Medication ?Medication ?Instructions ?Recorded acetaminophen 500 mg tablet 1,000 mg (2 x 500 mg) PO Q8H PRN 09/02/18 pain #90 tabs polyethylene glycol 3350 17 17 g PO DAILY #510 grams 08/23/21 gram/dose oral powder (Miralax) clobetasol-emollient 0.05 % 1 applic topical DAILY #60 grams 06/10/24 topical cream lisinopril 20 mg tablet 20 mg PO HS #90 tabs 10/28/24 bisacodyl 5 mg tablet,delayed 5 mg PO ONCE #4 tabs 03/11/25 release (Dulcolax (bisacodyl)) polyethylene glycol 3350 17 17 g PO ONCE #238 grams 03/11/25 gram/dose oral powder Current Visit Medications: Current Medications Generic Name Dose Route Start Last Admin Trade Name Freq PRN Reason Stop Dose Admin Ringer's Solution 1,000 mls @ 80 mls/hr 03/26/25 06:00 IV 03/26/25 23:59 INFUSION NIGEL IV Miscellaneous Supplies 1 each 03/26/25 06:00 Iv Access IV 03/26/25 23:59 DIRECTED NIGEL Sodium Chloride 0 ml 03/26/25 06:00 Normal Saline Flush 10 Ml Syr IV 03/26/25 23:59 PRN PRN Sodium Chloride 0 ml 03/26/25 06:00 Normal Saline 10 Ml Vial IJ 03/26/25 23:59 DIRECTED PRN Sterile Water 0 ml 03/26/25 06:00 Water,Injection,Sterile 10 Ml Vial IJ 03/26/25 23:59 DIRECTED PRN PFSH Active Problems Active Problems: Problem Status Onset Code Left shoulder pain Acute M25.512 Asymmetrical sensorineural hearing loss Acute H90.3 Hearing loss Acute H91.90 Hypothyroidism (acquired) Acute E03.9 Posterior subcapsular age-related cataract, right eye Resolved H25.041 Obesity Chronic Eczema Acute L30.9 Diabetes Chronic E11.9 Essential hypertension Chronic I10 Hyperlipidemia Acute E78.5 Tobacco use disorder Acute F17.200 Diverticulitis with perforation Acute 09/18/13 K57.80 Psoriasis Chronic L40.9 Medical History Medical History COVID 2021-uri/fatigue Post-traumatic osteoarthritis of right knee (11/03/15) Surgical History Surgical History History of knee replacement Status post meniscectomy Status post carpal tunnel release History of rectal surgery History of arthroscopy of knee Tobacco Smoking/Tobacco Use Status: Former Tobacco Use Smokeless tobacco user: dissolvable tobacco Passive smoking exposure: Yes Second hand exposure: Yes Alcohol Alcohol Intake: former Year quit: 2022 Substance Use Substance use: Never Substance use type: does not use Vital Signs and Lab Results Vital Signs Most Recent Vital Signs in EMR: Most Recent Vital Signs Temp Pulse Resp BP Pulse Ox 36.6 C 63 16 125/82 96 03/26/25 08:39 03/26/25 08:39 03/26/25 08:39 03/26/25 08:39 03/26/25 08:39 Lab Results Complete Metabolic Panel: Hemoglobin A1c, (4.5-5.7) 5.9 % H 03/10/25, 10:42 Thyroid Panel: TSH, (0.36-3.74) 4.45 uIU/mL H 03/22/25, 14:20 Anesthesia Assessment and Plan Anesthesia History Personal History: No History of Anesthesia Complications Family History: No Family History of Anesthesia Complications Exercise Tolerance Exercise Tolerance: Metabolic Equivalents>4 Pertinent Negatives Pertinent Negatives: No Symptoms of GERD, No Major Cardiovascular Symptoms or Complaints and No Major Pulmonary Symptoms or Complaints Cardiac & Pulmonary Exam Cardiac Exam: Normal S1/S2 Heart Sounds Pulmonary Exam: Clear Bilateral Breath Sounds Implantable Cardiac Device Does patient have a Pacemaker or an ICD?: No Airway Exam Known Difficult Airway: No Mallampati Class: 2 Mouth Opening: Normal (> 3cm) Thyromental Distance: Greater than 3 cm Facial Hair: Full Winkler Neck Range of Motion: Full ROM Neck Circumference: Normal Teeth Condition: Normal Dentition ASA Classification ASA Score: ASA 2 Emergency Case?: No NPO Status NPO Status: NPO Clears >2 hours, Solids >8 hours Anesthesia Plan Resuscitation Status: Full Code Anesthesia Technique: General Anesthesia Airway Planned: Natural Airway Monitors Used: Standard Monitors
[2025-03-26 09:02] VITALS: BMI 34.9
[2025-03-26] MEDS: Lactated Ringers 1,000 ML 80 ML IV (09:08)
--- NOTE | 2025-03-26 09:27 | W.PM.DSUDISC ---
Date of service: 03/26/25 Discharge Plan Disposition Patient Disposition: Home Condition: Stable Discharge Details Reason For Visit: colonoscopy Attending Provider: Emilia Larson Primary Care Provider: Isaac Bonilla Home Meds and New Rx's Prescriptions: Continued clobetasol-emollient 0.05 % cream 1 applic Topical DAILY Qty: 60 3RF polyethylene glycol 3350 [Miralax] 17 gram/dose powder 17 g PO DAILY Qty: 510 8RF lisinopril 20 mg tablet 20 mg PO HS Qty: 90 3RF acetaminophen 500 mg tablet 1,000 mg PO Q8H PRN (Reason: pain) Qty: 90 3RF Discontinued bisacodyl [Dulcolax (bisacodyl)] 5 mg tablet,delayed release (DR/EC) 5 mg PO ONCE Qty: 4 0RF Rx Instructions: Take per colonoscopy instructions provided by ordering providers office polyethylene glycol 3350 17 gram/dose powder 17 g PO ONCE Qty: 238 0RF Rx Instructions: Take per colonoscopy instructions provided by ordering providers office Discharge Instructions Additional Instructions: Normal colonoscopy. Next screening colonoscopy will be due in 10 years Diverticulosis of the sigmoid colon noted, no diverticulitis (infection) present. Take a daily fiber supplement and eat a high fiber diet to prevent problems of diverticulosis. Stand Alone Forms: Anesthesia Discharge InstLilliam, Elizabeth Chavez ([facility]) Activity:: Activity as Tolerated Diet:: As Tolerated Discharge Orders Discharge Orders: Discharge Order (Routine); Ordered 03/26/25 Ordered By: Emilia Larson DS: Diagnosis Discharge Diagnosis (1) Screening for colorectal cancer: Status: Acute (2) Diverticulosis of sigmoid colon: Status: Acute
--- NOTE | 2025-03-26 09:28 | W.COLOREPORT ---
Date of service: 03/26/25 Time of Service: 09:28 Colonoscopy Report Date of procedure: 03/26/25 Pre-op diagnosis general: Screening for colorectal cancer Post-op diagnosis procedure note: same (1. diverticulosis of sigmoid colon) Procedure: Colonoscopy Surgeon: Emilia Larson Anesthesia Type: General:No Airway Estimated blood loss (mL): 0 Pathology: none sent Complications: None Indications: screening for colorectal cancer Prep: Miralax/Dulcolax (Good) Procedure Description: Informed consent was obtained and the patient was taken to the procedure area. The patient was placed in left lateral decubitus position on the procedure table. Timeout was performed. Anesthesia was induced. A lubricated colonoscope was inserted through the anus and passed to the cecum. The cecum was identified by the ileocecal valve and the appendiceal orifice. The scope was then slowly withdrawn and the colonic and rectal mucosa examined. There are no colon or rectal mass lesions, polyps, AVMs. There is no inflammatory change. Sigmoid diverticulosis, moderate. No diverticulitis. The scope was retroflexed in the anorectal junction examined. Uncomplicated internal hemorrhoids with tag present. Assessment and plan: Screening for colorectal cancer sigmoid diverticulosis Normal colonoscopy. Next screening colonoscopy will be due in 10 years.
[2025-03-26 09:47] VITALS: BP 113/73; PULSE 66; RESP 15; TEMP 36.3; O2SAT 95
--- NOTE | 2025-03-26 10:00 | W.ANESPOSTOP ---
Postoperative Evaluation Date, Time and Location Date Performed: 03/26/25 Time Performed: 09:47 Patient Location: Day Surgery Unit Vital Signs Most Recent Imported Vital Signs: Most Recent Vital Signs Temp Pulse Resp BP Pulse Ox 36.3 C L 66 15 113/73 95 03/26/25 09:47 03/26/25 09:47 03/26/25 09:47 03/26/25 09:47 03/26/25 09:47 Pain Score Most Recent Pain Score: Most Recent Pain Score Pain Level 2 03/26/25 09:47 Assessment Mental Status: Awake (Alert & Oriented to Patient Baseline) Airway and Respiratory Function: Patent airway with normal (patient baseline) respiratory exam Cardiovascular Function: Hemodynamically Stable Hydration Status: Adequately Hydrated Nausea & Vomiting: No Nausea or Vomiting Pain: Pt. Denies Any Pain Peripheral Nerve Block: Patient did not receive a nerve block
[2025-03-26 10:08] VITALS: BP 102/70; PULSE 62; RESP 16; TEMP 36.3; O2SAT 96
== END 2025-03-26 10:18 | disposition home or self-care (01) ==
PROVIDERS: PCP Nurse Practitioner Family; Visit Provider Surgery
PROC: 0DJD8ZZ Inspection of Lower Intestinal Tract, Via Natural or Artificial Opening Endoscopic (ICD-10-PCS; CPT 45378; principal; 2025-03-26 09:45)
DX: Z12.11 Encounter for screening for malignant neoplasm of colon (principal); Z12.12 Encounter for screening for malignant neoplasm of rectum; K57.30 Diverticulosis of large intestine without perforation or abscess without bleeding
CPT/HCPCS: 45378; J2003; J2704